=== PATIENT | female | born 1965 | race Caucasian/White ===

== ENCOUNTER 2022-04-28 20:14 | Emergency (ER) | payer OTHER, SELFPAY ==
[2022-04-28 20:15] VITALS: BP 136/94; PULSE 108; RESP 18; TEMP 36.8; O2SAT 98; BMI 30.5
--- NOTE | 2022-04-28 20:50 | CT_ITS ---
STUDY: CT ABDOMEN AND PELVIS WITHOUT CONTRAST REASON FOR EXAM: Female, 56 years old. Kidney Stone RADIATION DOSAGE (If Supplied By Facility): CTDIvol = ( 12.22 ) mGy, DLP = ( 638.18 ) mGycm TECHNIQUE: Transaxial images were obtained from the dome of the diaphragm to the symphysis pubis without oral contrast, and without intravenous contrast. Sagittal and coronal images were reconstructed. Individualized dose optimization techniques were used for this CT. COMPARISON: None. FINDINGS: The visualized lung bases are unremarkable. The visualized portions of the heart are within normal limits. Normal liver. Normal gallbladder and extrahepatic biliary system. Normal spleen. Normal pancreas. Normal bilateral adrenal glands. Normal right kidney. Normal left kidney. Normal visualized stomach. Normal small intestine. Normal colon. The appendix is visualized and appears normal. Normal abdominal aorta. Normal inferior vena cava. Normal retroperitoneum. Normal urinary bladder. Normal abdominal wall. Mild dextroscoliosis of the lumbar spine. CT/Abdomen/Pelvis without Cont IMPRESSION: Normal unenhanced CT of the abdomen and pelvis. Electronically Signed: Blaine Baker MD at 21:46 EST ,
--- NOTE | 2022-04-28 20:52 | EDS_ITS ---
HPI HPI - GI History of Present Illness Chief Complaint: Flank Pain Narrative Narrative: 56-year-old female who denies significant past medical history states she last had a kidney stone 15 years ago. On Thursday, 2 days ago, she had sudden onset of left flank pain more towards the front. It went from 10-0 very quickly. She thought maybe she had passed it. However, today she felt abdominal bloating, she felt feverish and sudden onset of pain again approximately 4 hours ago. No exacerbating or alleviating factors. On Thursday, she had noted hematuria which has resolved. She thinks she may have a kidney stone again. She relates history that she had diarrhea on Thursday, 2 days ago, but that has also resolved. She presents because of the pain in her left flank. [facility] Medical History (Updated 04/28/22 @ 22:38 by Kishan Singh MD) Depression Home Medications levofloxacin 750 mg tablet 750 mg PO DAILY #7 tabs 04/28/22 [Rx Last Taken Unknown] Allergy/AdvReac Type Severity Reaction Status Date / Time No Known Allergies Allergy Verified 04/28/22 21:10 Social History Smoking Status: Never smoker ROS ROS ED ROS Narrative Constitutional: No fever but felt feverish, no chills. HEENT: No sore throat. No neck pain. No loss of vision. No rhinorrhea. Cardiovascular: No chest pain. No palpitations. No pedal edema. Respiratory: No cough, no shortness of breath. Abdominal: No abdominal pain. No nausea. No vomiting. Diarrhea 2 days ago- resolved. Genitourinary: No dysuria. 2 days ago had hematuria. Left flank pain 2 days ago, resolved, then returned this evening 4 hours ago. Musculoskeletal: No myalgias. No arthralgias. Neurologic: No headaches. No dizziness. No lightheadedness. Skin: No rash. No change in color. Psychiatric: No depression. No anxiety. EXAM Physical Exam Narrative Exam Narrative: Afebrile. Vital signs noted. Nontoxic-appearing. HEENT: Normocephalic. Atraumatic. PERRL, EOMI. Neck soft and supple. No point tenderness or step off. Cardiovascular: Regular rate and rhythm with intermittent tachycardia. No murmurs, rubs, or gallops appreciated. Respiratory: No tachypnea. Lungs clear to auscultation bilaterally. Gastrointestinal: Abdomen soft, nontender, with normoactive bowel sounds. No rebound or guarding. No CVA tenderness to percussion, left Neurological: Awake. Alert. Nonfocal, nonlateralizing. Skin: No rash. Normal color. No pallor. Musculoskeletal: No pedal edema. Full range of motion extremities. Const Vital Signs: 04/28/22 20:15 Temperature 98.3 F Temperature Source Temporal Pulse Rate 108 H Respiratory Rate 18 Blood Pressure 136/94 H Blood Pressure Mean 108 Pulse Ox 98 Oxygen Delivery Method Room Air MDM MDM MDM Narrative Medical decision making narrative: Kidney stone work-up was pursued. She was administered 1 L of normal saline bolus intravenously. She was also administered ondansetron, Toradol, and morphine. She has had total hysterectomy so CT of the abdomen pelvis was obtained without contrast along with CBC and BMP. CBC shows slightly elevated white count of 11.8, hemoglobin normal at 12.7 with platelet count normal at 294. Electrolyte panel is grossly unremarkable except for glucose of 121 with a normal anion gap of 5, creatinine normal at 0.93. Urinalysis is positive for nitrites with 500 leukocyte esterase with microanalysis showing greater than 100 WBCs and greater than [address] of the abdomen pelvis shows no acute process, no ureterolithiasis or hydronephrosis. At this point in time, and we will treat her as a pyelonephritis. Urine culture was sent given her left flank pain and elevated white count. She was given her first dose of Levaquin and a prescription written for the next 7 days. I feel she be discharged safely home with follow- up. Return instructions to the emergency department were reviewed. Disposition is discharged home in stable condition. Lab Data Attestation: I reviewed the patient's lab results. Labs: Laboratory Results - last 24 hr 04/28/22 04/28/22 04/28/22 21:07 21:11 21:11 WBC 11.8 H RBC 4.19 L Hgb 12.7 Hct 38.4 MCV 91.6 MCH 30.3 MCHC 33.1 RDW Std Deviation 46.2 H RDW Coeff of Joaquin 13.5 Plt Count 294 MPV 9.5 Immature Gran % (Auto) 0.500 Neut % (Auto) 78.8 H Lymph % (Auto) 12.0 L Faulkner % (Auto) 8.1 Eos % (Auto) 0.3 Baso % (Auto) 0.3 Absolute Neuts (auto) 9.3 H Absolute Lymphs (auto) 1.41 Nucleated RBC % 0 Sodium 137 Potassium 3.6 Chloride 104 Carbon Dioxide 28.0 Anion Gap 5 BUN 9 Creatinine 0.93 Estim Creat Clear Calc 68.14 Est GFR (MDRD) Af Amer 80 Est GFR (MDRD) Non-Af 66 BUN/Creatinine Ratio 9.6 L Glucose 121 H Calcium 9.2 Urine Color Yellow Urine Clarity Cloudy Urine pH 6.0 Ur Specific [place] 1.020 Urine Protein 500 H Urine Glucose (UA) Normal Urine Ketones 5 H Urine Occult Blood 250 H Urine Nitrite Positive H Urine Bilirubin Negative Urine Urobilinogen Normal Ur Leukocyte Esterase 500 H Urine RBC > 100 SEEN Urine WBC >100 SEEN Ur Squamous Epith Cells 0-5 SEEN Urine Bacteria 1+ Urine Mucus 0 SEEN Radiography Diagnostic Testing: Clinical Impression(s) from Imaging Studies Abdomen/Pelvis CT 04/28/22 20:50 IMPRESSION: Normal unenhanced CT of the abdomen and pelvis. Electronically Signed: Blaine Baker MD at 21:46 EST , Discharge Plan Triage Chief Complaint: Flank Pain ED Provider: Kishan Singh Dx/Rx/DC Orders Clinical Impression: Pyelonephritis, Left flank pain Instructions: ED Pyelonephritis, Female (Adult) Prescriptions: New levofloxacin 750 mg tablet 750 mg PO DAILY Qty: 7 0RF Primary Care Provider: Care Physician,No Primary Referrals: Allyssa Trujillo MD [Med Staff - Active Staff] - 1 Week if not improving Nela Mendieta DO [Med Staff - Hand Ii Tube Bender] - 1 Week if not improving Care Physician,No Primary [Primary Care Provider] - Disposition Disposition: Home, Self Care
[2022-04-28] MEDS: Morphine 4 MG/ML Syringe IV (21:08)
[2022-04-28] MEDS: Ondansetron 4 MG/2 ML Vial IV (21:08)
[2022-04-28] MEDS: 0.9% Normal Saline 1,000 ML 999 ML IV (21:08)
[2022-04-28] MEDS: Ketorolac 30 MG/ML Syringe IV (21:08)
[2022-04-28 21:16] LABS: Mucous, Urine 0 SEEN /hpf (<or=2+)
[2022-04-28 21:17] LABS: Absolute Lymphocyte Count 1.41 X10^3/uL (0.83-4.51); Absolute Neutrophil Count 9.3 X10^3/uL (2.0-7.7); Basophil# 0.04 X10^3/uL; Basophil% 0.3 % (0-1); Eosinophil# 0.04 X10^3/uL; Eosinophils% 0.3 % (0-5); Hematocrit 38.4 % (37-47); Hemoglobin 12.7 g/dL (12.0-15.0); Lymphocyte # 1.41 X10^3/ul (0.83-4.51); Mean Corp Hgb Conc 33.1 g/dL (32-36); Mean Corpuscular Hgb 30.3 pg (27.0-32.0); Mean Corpuscular Volume 91.6 fL (81-99); Mean Platelet Vol. 9.5 fl (6.2-12.0); Monocyte# 0.95 X10^3/uL; Monocyte% 8.1 % (0-10); NRBC Flagged by Analyzer 0 % (0-5); Neutrophil # 9.26 X10^3/uL (2.7-7.7); Neutrophil % 78.8 % (47-70); Platelet Count 294 K/mm3 (150-450); RBC Distribution Width CV 13.5 % (11.6-14.6); RBC Distribution Width SD 46.2 fl (35.1-43.9); Red Blood Count 4.19 M/mm3 (4.2-5.4); White Blood Count 11.8 K/mm3 (4.4-11.0)
[2022-04-28 21:27] LABS: Color, Urine Yellow (Yellow); Glucose, Dipstick Normal (Normal); Ketone-Dipstick 5 mg/dl (Negative); Leukocyte Esterase-Dipstick 500 /ul (Negative); Nitrite-Dipstick Positive (Negative); Occult Blood-Urine 250 /ul (Negative); Protein-Dipstick 500 mg/dl (Negative); Urine Bilirubin Dipstick Negative (Negative); Urine Clarity Cloudy (Clear); Urine Urobilinogen Normal (Normal)
[2022-04-28 21:34] LABS: Anion Gap 5 (5-15); BUN 9 mg/dL (7-18); BUN/Creat Ratio 9.6 RATIO (10-20); Calcium,Total 9.2 mg/dL (8.5-10.1); Chloride 104 mmol/L (98-107); Creatinine, Serum 0.93 mg/dL (0.55-1.02); EST Glomerular Filtration Rate 66 mL/min (>60); Est Glom Filt Rate - Afr Amer 80 mL/min (>60); Estimated Creatinine Clearance 68.14 ml/min; Glucose 121 mg/dL (74-106); Potassium 3.6 mmol/L (3.5-5.1); Sodium Level 137 mmol/L (136-145)
[2022-04-28 21:47] LABS: White Blood Cells >100 SEEN /hpf (0-5)
[2022-04-28 21:49] LABS: Red Blood Cells-Urine > 100 SEEN /hpf (0-5)
[2022-04-28 21:50] LABS: Bacteria 1+ /hpf (None Seen); Squamous Epithelial Cells - UA 0-5 SEEN /hpf (5-10)
[2022-04-28] MEDS: levoFLOXacin 750 MG Tablet PO (22:55)
== END 2022-04-28 22:57 | disposition home or self-care (01) ==
PROVIDERS: Emergency Provider Emergency Medicine; Visit Provider Emergency Medicine
DX: N12 Tubulo-interstitial nephritis, not specified as acute or chronic (principal); R10.9 Unspecified abdominal pain
CPT/HCPCS: 74176; 80048; 81001; 85025; 87086; 87088; 87186; 96361; 96374; 96375; 99283; J7030; A4216; J2405

== ENCOUNTER 2023-10-23 07:31 | Outpatient (CLI) | payer OTHER, SELFPAY ==
--- NOTE | 2023-10-23 07:43 | BI_ITS ---
MAMMOGRAPHY - BILATERAL SCREENING REASON FOR EXAM: Female, 58 years old. Routine annual screening examination. PERTINENT HISTORY: Non-contributory. TECHNIQUE: Digital bilateral breast danette (3D mammographic acquisition) in the CC and MLO projections. 2-D mediolateral oblique (MLO) and craniocaudad (CC) views of both breasts were obtained. CAD: Full Field Digital Mammography with Computer Added Detection was performed. COMPARISON: Comparison is made with prior outside examination dated April 24, 2021 and March 12, 2020 FINDINGS: Breast Composition: The breasts are extremely dense, which lowers the sensitivity of mammography. There are no dominant masses or suspicious calcifications. No other significant abnormalities are identified. There has been no significant change since the prior study. BI/SCRN MAMM (CAD)W/DANETTE BILAT IMPRESSION: Stable bilateral screening mammogram. Yearly follow-up mammogram recommended. (A) ASSESSMENT CATEGORY: BIRADS Category 1: Negative. A letter regarding these results will be sent to the patient by the facility within 30 days. Approximately 10% of breast cancers are not detected by mammography. A normal mammogram should not delay biopsy of a clinically suspicious abnormality. [id number] Electronically Signed: Jatin Sandoval MD at 9:02 EDT ,
== END 2023-10-23 23:59 | disposition home or self-care (01) ==
LOC: OPBI 07:42
PROVIDERS: Visit Provider Emergency Medicine
DX: Z12.31 Encounter for screening mammogram for malignant neoplasm of breast (principal)
CPT/HCPCS: 77063; 77067

== ENCOUNTER 2023-12-01 08:17 | Day surgery (SDC) | payer OTHER, SELFPAY ==
[2023-12-01] VITALS (7 sets, daily range): BP systolic 98–134; BP diastolic 76–90; PULSE 62–70; RESP 16–18; TEMP 36.1–36.6; O2SAT 98–100; BMI 29.0
[2023-12-01] MEDS: Lactated Ringers 1,000 ML 15 ML IV (08:45)
--- NOTE | 2023-12-01 08:47 | PCM.PRE.AN2 ---
ASA Classification* ASA Classification ASA Classification: 2 Assessment & Plan Anesthesia* Anesthesia Assessment Anesthesia Assessment: Discussed sedation and/or anesthesia options, risks, benefits, and alternatives with patient/parents/legal guardian/POA. Questions invited. The patient/parents/legal guardian/POA seems to understand and agrees to proceed with anesthesia plan. Reviewed the physical assessment, medical history, allergy history and patient home medications list prior to surgery/procedure/anesthetic and documented any changes. Performed airway and anesthesia risk assessments. Anesthesia Type Anesthesia Type: MAC Anesthesia Focused Assessment* Temperature: 97.8 F Pulse Rate: 70 Blood Pressure: 134/90 Respiratory Rate: 18 Pulse Ox: 100 Airway Assessment Mouth opens: >3 cm Mallampati Score: II Focused Labs Anesthesia Preop lab: CBC WBC 11.8 K/mm3 (4.4-11.0) H 04/28/22 21:11 RBC 4.19 M/mm3 (4.2-5.4) L 04/28/22 21:11 Hgb 12.7 g/dL (12.0-15.0) 04/28/22 21:11 Hct 38.4 % (37-47) 04/28/22 21:11 Plt Count 294 K/mm3 (150-450) 04/28/22 21:11 CHEMISTRY Potassium 3.6 mmol/L (3.5-5.1) 04/28/22 21:11 Sodium 137 mmol/L (136-145) 04/28/22 21:11 BUN 9 mg/dL (7-18) 04/28/22 21:11 Creatinine 0.93 mg/dL (0.55-1.02) 04/28/22 21:11 Glucose 121 mg/dL (74-106) H 04/28/22 21:11 COAG Pre-Assessment Diagnosis/Proposed Procedure Planned Operative Procedure(s): COLONOSCOPY-OA Anesthesia History Anesthesia History - social secretary: Anesthesia History - social secretary Hx Hospitalization No 11/30/23 08:20 Any Problems With Anesthesia Yes: N&V 11/30/23 08:20 Cholinesterase deficiency No 11/30/23 08:20 You/Your Family Experience No 11/30/23 08:20 fever (hyperthermia) with Relationship Recent Exposure to Contagious No 12/01/23 08:37 Disease Does patient have nerve No 11/30/23 08:20 stimulator Patient instructed to have device shut off --Does patient have Pacemaker No 12/01/23 08:38 or ICD? When Was Last Pacemaker Check QUESTION #4 FULL TEXT: You/Your Family Experience fever (hyperthermia) with Anesthesia Last Oral Intake Last Oral intake: Last Oral Intake NPO since 06:00 12/01/23 08:38 Meds taken in AM with sips of water? Meds patient instructed to take am of surgery PONV PONV - social secretary: PONV - social secretary Female Yes 11/30/23 08:20 HX of Motion Sickness No 11/30/23 08:20 HX of N/V After Surgery No 11/30/23 08:20 Non-Smoker Yes 11/30/23 08:20 Duration of Surgery greater No 11/30/23 08:20 than 60 minutes Number of Risk Factors 2 11/30/23 08:20 PONV Score Moderate Risk 11/30/23 08:20 Height & Weight Height & Weight: Anesthesia: Height & Weight Height 5 ft 8 in 12/01/23 08:38 Weight: 86.636 kg 12/01/23 08:38 Body Mass Index (BMI) 29.0 12/01/23 08:38 Respiratory Assessment Respiratory Assessment - social secretary: Respiratory Tract Infection Hx - social secretary Hx Respiratory Tract Infection No 11/30/23 08:20 STOP Sleep Apnea STOP Sleep Apnea - social secretary: STOP Sleep Apnea - social secretary Hx Hypertension No 11/30/23 08:20 Hx Sleep Apnea No 11/30/23 08:20 CPAP BIPAP Do you snore loudly (louder Yes 11/30/23 08:20 than talking or can be heard Do you often feel tired/ No 11/30/23 08:20 fatigued/ sleepy during daytime? Has anyone observed you stop No 11/30/23 08:20 breathing during sleep? STOP Results Negative 11/30/23 08:20 QUESTION #5 FULL TEXT : Do you snore loudly (louder than talking or can be heard through closed doors)? 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 Specify any problems Hx of Preganancy in last 3 No 11/30/23 08:20 Months Nurse Filling Out Transfusion VCHRISTIN 11/30/23 08:20 & Questions: Date: 11/30/23 11/30/23 08:20 Time: 08:11/30/23 08:20 Patient unable to answer at this time (ie. confused, unrespo /Reproduction History /Reproductive History - social secretary: /Reproductive Hx- social secretary Hx Now Gestational Age (in weeks): EDC: Hx Hx Para Hx Section SAB Active Medications Active Medications: Current Medications Generic Name Dose Route Start Last Admin Trade Name Freq PRN Reason Stop Dose Admin Lactated Ringer's 1,000 mls @ 15 mls/hr 12/01/23 08:30 12/01/23 08:45 IV 15 mls/hr .Q48H LIZA Administration PFSH Medical History Wears contact lenses Anxiety Alcohol use Kidney stone Syncope Family hx of colon cancer Hx of colonic polyps Depression Home Medications ?Medication ?Instructions ?Recorded ?Last Taken ?Type escitalopram oxalate 10 mg tablet 10 mg PO DAILY 10/26/23 11/30/23 History (Lexapro) estradiol 1 mg tablet 1 mg PO DAILY 10/26/23 11/30/23 History hyoscyamine sulfate 0.125 mg 0.125 mg PO BID-QID PRN dyspepsia 10/26/23 Unknown History tablet (Levsin) Allergy/AdvReac Type Severity Reaction Status Date / Time morphine Allergy Nausea Verified 12/01/23 08:36 Family History Father Colon polyps Unknown Colon cancer, Onset Age: 45 Surgical History Hx of tubal ligation Hx of parathyroidectomy Hx of hysterectomy H/O total knee replacement Hx of colonoscopy Social History current occupational status: employed Smoking Status: Never smoker alcohol intake: current alcohol intake frequency: 0-2 drinks per day substance use type: does not use Review of Systems (Anesthesia) ROS Narrative System reviewed and no additional complaints, except as documented.
--- NOTE | 2023-12-01 11:10 | HP.PCM_ITS ---
HPI - General HPI Narrative ANDRES FENG, is a 58 F who presents for screening colonoscopy. She had her last colonoscopy 6 years ago and polyps were removed. She denies abdominal pain or blood in the stool. She has no first degree family history of colon cancer. PENDING SALE TO [facility] Medical History (Updated 12/01/23 @ 11:[address] Stone Pineda MD) Wears contact lenses Anxiety Alcohol use Kidney stone Syncope Family hx of colon cancer Hx of colonic polyps Depression Home Medications ?Medication ?Instructions ?Recorded ?Last Taken ?Type escitalopram oxalate 10 mg tablet 10 mg PO DAILY 10/26/23 11/30/23 History (Lexapro) estradiol 1 mg tablet 1 mg PO DAILY 10/26/23 11/30/23 History hyoscyamine sulfate 0.125 mg 0.125 mg PO BID-QID PRN dyspepsia 10/26/23 Unknown History tablet (Levsin) Allergy/AdvReac Type Severity Reaction Status Date / Time morphine Allergy Nausea Verified 12/01/23 08:36 Family History Father Colon polyps Unknown Colon cancer, Onset Age: 45 Surgical History Hx of tubal ligation Hx of parathyroidectomy Hx of hysterectomy H/O total knee replacement Hx of colonoscopy Social History current occupational status: employed Smoking Status: Never smoker alcohol intake: current alcohol intake frequency: 0-2 drinks per day substance use type: does not use Past Medical/Surgical History Planned Operation Planned Operative Procedure(s): COLONOSCOPY-OA Previous Hospitalizations/Surgeries HX Hospitalizations: No Any Problems With Anesthesia: Yes (N&V) You/Your Family Experience Fever (Hyperthermia) With Anes: No Cholinesterase deficiency: No Cardiovascular Hx Hypertension: No Respiratory Hx Sleep Apnea: No Hx Respiratory Tract Infection/Cold (presently): No Do You Snore Loudly (louder than talking or can be heard): Yes Do You Often Feel Tired/ Fatigued/ Sleepy Dring Daytime?: No Has Anyone Observed You Stop Breathing During Sleep?: No Result (for STOP score): Negative Smoking Status: Never smoker Neurological Does patient have nerve stimulator: No Miscellaneous Recent Exposure to Contagious Disease: No Allergies morphine Allergy (Verified 12/01/23 08:36) Nausea Discharge Is Pt Admitted From a Retirement, or a Snf: No After D/C, Where Do you Plan to Go: Return Home Vital Signs Vital Signs Vital Signs: 12/01/23 08:37 12/01/23 08:38 12/01/23 08:47 Temperature 97.8 F 97.8 F Temperature Source Temporal Pulse Rate 70 70 Respiratory Rate 18 18 Respiratory Pattern Normal Blood Pressure 134/90 H 134/90 H Blood Pressure Mean 104 Blood Pressure Source Monitor Blood Pressure Position Semi-Fowlers Blood Pressure Location Left Arm Pulse Ox 100 100 Oxygen Delivery Method Room Air Weight Weight: 191 lb Body Mass Index (BMI) 29.0 Physical Exam Const alert and oriented x3 HEENT normocephalic Eyes PERRL Resp normal respiratory effort and normal air movement Cardio regular rate and regular rhythm GI soft to palpation, non-tender and non-distended Extremity normal to inspection Assessment & Plan Assessment/Plan (1) Hx of colonic polyps: PLAN: I explained endoscopy in detail to the patient. I explained the risks including but not limited to stroke or heart attack with anesthesia, perforation of the GI tract, bleeding, infection. I explained that any of these could necessitate further emergency surgery. The patient understands and all questions were answered sufficiently. The patient wishes to proceed with procedure. Stone Pineda MD Pager: [facility] [address] [place] [address], [address] [place] [address] Office: Surgery Risks - Colonoscopy Risks Include but are not Limited To: Risks include but are not limited to: Bleeding, perforation requiring further surgery, inability to complete colonoscopy requiring barium enema.
--- NOTE | 2023-12-01 11:50 | PCM.POST.ANE ---
Anesthesia: Postop Eval I Current Vital Signs Temperature: 97.8 F Pulse Rate: 67 Blood Pressure: 107/76 Respiratory Rate: 18 Pulse Ox: 99 Oxygen Delivery Method: Room Air Assessment Airway patent: Yes Spontaneous unlabored respirations: Yes Mental status: Awake and Calm nausea: No Vomiting: No Anesthesia Complication: No Fluid Hydration Crystalloid volume administer (ml): 900 Total IV fluid infused: 900 Progress Note Anesthesia document: Postop Eval 1 completed: Yes
--- NOTE | 2023-12-01 12:01 | OP.CCLET_ITS ---
12/01/2023 Garfield Pinzon Md Re : Colonoscopy procedure for Ashanti Navas Dear Dr. Pinzon This procedure was performed on Friday, December 01, 2023. My impressions and recommendations are as follows: Impressions : - The entire examined colon is normal on direct and retroflexion views. - No specimens collected. Recommendations : - Discharge patient to home. - Resume previous diet. - Continue present medications. - Repeat colonoscopy in 10 years for screening purposes. My findings are described in the full procedure note, which is enclosed. If I can be of further assistance, please feel free to contact me at Doctor phone number(s): , Work: . Sincerely, Stone Pineda MD 12/01/2023 12:00:45 PM This report has been signed electronically.
--- NOTE | 2023-12-01 12:01 | OP.COLON_ITS ---
Patient Name: Ashanti Navas Procedure Date: 12/01/2023 11:10 AM Date of : 1965 Age: 58 Procedure: Colonoscopy Indications: High risk colon cancer surveillance: Personal history of colonic polyps Providers: Stone Pineda MD Referring MD: Garfield Pinzon Md Medicines: Propofol per Anesthesia Patient Profile: This is a 58 year old female. Refer to note in patient chart for documentation of history and physical. Last Colonoscopy: several years ago. Complications: No immediate complications. Procedure: Pre-Anesthesia Assessment: - Prior to the procedure, a History and Physical was performed, and patient medications and allergies were reviewed. The patient's tolerance of previous anesthesia was also reviewed. The risks and benefits of the procedure and the sedation options and risks were discussed with the patient. All questions were answered, and informed consent was obtained. Prior Anticoagulants: The patient has taken no anticoagulant or antiplatelet agents. After reviewing the risks and benefits, the patient was deemed in satisfactory condition to undergo the procedure. After I obtained informed consent, the scope was passed under direct vision. Throughout the procedure, the patient's blood pressure, pulse, and oxygen saturations were monitored continuously. The pediatric colonoscope was introduced through the anus and advanced to the cecum, identified by appendiceal orifice and ileocecal valve. The colonoscopy was performed without difficulty. The patient tolerated the procedure well. The quality of the bowel preparation was good. The ileocecal valve, appendiceal orifice, and rectum were photographed. Scope In: 11:34:57 AM Scope Withdrawal Time 0 hours 6 minutes 0 seconds Scope Out: 11:44:58 AM Total Procedure Duration Time 0 hours 10 minutes 1 second Findings: The entire examined colon appeared normal on direct and retroflexion views. Impression: - The entire examined colon is normal on direct and retroflexion views. - No specimens collected. Recommendation: - Discharge patient to home. - Resume previous diet. - Continue present medications. - Repeat colonoscopy in 10 years for screening purposes. Procedure Code(s): --- Professional --- 94136, Colonoscopy, flexible; diagnostic, including collection of specimen(s) by brushing or washing, when performed (separate procedure) Diagnosis Code(s): --- Professional --- Z86.010, Personal history of colonic polyps CPT copyright 2021 [employer]. All rights reserved. The codes documented in this report are preliminary and upon photograph retoucher review may be revised to meet current compliance requirements. Stone Pineda MD 12/01/2023 12:00:45 PM This report has been signed electronically. Number of Addenda: 0 Note Initiated On: 12/01/2023 11:10 AM
--- NOTE | 2023-12-01 12:30 | POSTOPAN2_ITS ---
Anesthesia Postop Eval I Sum Postop Eval Completion status Anesthesia document: Postop Eval 1 completed: Yes Anesthesia Postop Eval I Summary Anesthesia Postop Eval I Summary: Anesthesia Postop Eval I: Assessment Summary Airway patent Yes 12/01/23 11:51 [email or web address] Spontaneous unlabored Yes 12/01/23 11:51 [email or web address] respirations Mental status Awake,Calm 12/01/23 11:51 [email or web address] nausea No 12/01/23 11:51 [email or web address] Vomiting No 12/01/23 11:51 [email or web address] Anesthesia Postop Eval I: Fluid Summary Crystalloid volume administer 900 12/01/23 11:51 [email or web address] (ml) Colloids volume administered ( ml) Blood Product volume administered (ml) Total IV fluid infused 900 12/01/23 11:51 [email or web address] Anesthesia Postop Eval I: Summary Notes Anesthesia Complication No 12/01/23 11:51 [email or web address] Anesthesia Complication Comment: Post-operative progress note Anesthesia: Postop Eval II Evaluation Mental status: Awake and Calm Pain Level: 0 nausea: No Vomiting: No Complications Anesthesia Complication: No
--- NOTE | 2023-12-01 12:30 | PCM.POSTANE2 ---
Anesthesia Postop Eval I Sum Postop Eval Completion status Anesthesia document: Postop Eval 1 completed: Yes Anesthesia Postop Eval I Summary Anesthesia Postop Eval I Summary: Anesthesia Postop Eval I: Assessment Summary Airway patent Yes 12/01/23 11:51 [email or web address] Spontaneous unlabored Yes 12/01/23 11:51 [email or web address] respirations Mental status Awake,Calm 12/01/23 11:51 [email or web address] nausea No 12/01/23 11:51 [email or web address] Vomiting No 12/01/23 11:51 [email or web address] Anesthesia Postop Eval I: Fluid Summary Crystalloid volume administer 900 12/01/23 11:51 [email or web address] (ml) Colloids volume administered ( ml) Blood Product volume administered (ml) Total IV fluid infused 900 12/01/23 11:51 [email or web address] Anesthesia Postop Eval I: Summary Notes Anesthesia Complication No 12/01/23 11:51 [email or web address] Anesthesia Complication Comment: Post-operative progress note Anesthesia: Postop Eval II Evaluation Mental status: Awake and Calm Pain Level: 0 nausea: No Vomiting: No Complications Anesthesia Complication: No
== END 2023-12-01 12:20 | disposition home or self-care (01) ==
LOC: EN 08:19 → AC 08:20
PROVIDERS: PCP Emergency Medicine; Referring Provider Emergency Medicine; Visit Provider Surgery
PROC: 0DJD8ZZ Inspection of Lower Intestinal Tract, Via Natural or Artificial Opening Endoscopic (ICD-10-PCS; CPT 45378; principal; 2023-12-01 11:10)
DX: Z12.11 Encounter for screening for malignant neoplasm of colon (principal); Z80.0 Family history of malignant neoplasm of digestive organs; Z86.010 Personal history of colon polyps; F41.9 Anxiety disorder, unspecified; F32.A Depression, unspecified; Z79.899 Other long term (current) drug therapy
CPT/HCPCS: 45378; J7120; J2405

== ENCOUNTER → 2024-04-19 | Outpatient (CLI) | payer OTHER, SELFPAY ==
[2024-04-19 11:01] LABS: Anion Gap 6 (5-15); BUN 15 mg/dL (7-18); Calcium,Total 9.5 mg/dL (8.5-10.1); Chloride 106 mmol/L (98-107); Cholesterol 243 mg/dL (200); Creatinine, Serum 0.88 mg/dL (0.55-1.02); EST Glomerular Filtration Rate 70 mL/min (>60); Est Glom Filt Rate - Afr Amer 84 mL/min (>60); Glucose 92 mg/dL (74-106); High Density Lipoprotein 79 mg/dL; Potassium 3.9 mmol/L (3.5-5.1); Sodium Level 140 mmol/L (136-145); Triglycerides 139 mg/dL; Very Low Density Lipoprotein 28 mg/dL (5-40)
== END | disposition home or self-care (01) ==
PROVIDERS: PCP Emergency Medicine; Referring Provider Emergency Medicine; Visit Provider Emergency Medicine
DX: Z13.220 Encounter for screening for lipoid disorders (principal); F32.9 Major depressive disorder, single episode, unspecified
CPT/HCPCS: 36415; 80048; 80061

== ENCOUNTER 2024-12-01 11:31 | Emergency (ER) | payer OTHER, SELFPAY ==
[2024-12-01 11:32] VITALS: BP 134/79; PULSE 60; RESP 18; TEMP 36.2; O2SAT 100; BMI 28.2
[2024-12-01 12:13] VITALS: BP 126/77; PULSE 56; RESP 16; O2SAT 100
--- NOTE | 2024-12-01 12:25 | RAD_ITS ---
PROCEDURE: SHOULDER MIN 2 VIEWS 12/01/2024 REASON FOR EXAM: INJURY/PAIN TECHNIQUE: SHOULDER MIN 2 VIEWS COMPARISON: None FINDINGS: There is a comminuted fracture of the right humeral head and neck. There 0.3 cm cortical offset at the lateral margin. There is no dislocation. The AC joint is aligned. Mineralization is normal. There is no visible atherosclerosis. RAD/Shoulder min 2 Views IMPRESSION: There is a comminuted fracture of the right humeral head and neck. Critical results were discussed with Dr. Florez by Dr. Hammond at the time o f dictation. Reading Location: [facility]
--- NOTE | 2024-12-01 12:25 | RAD_ITS ---
PROCEDURE: CLAVICLE 12/01/2024 REASON FOR EXAM: INJURY/PAIN TECHNIQUE: CLAVICLE COMPARISON: None FINDINGS: The clavicle appears intact. The acromion appears intact. The AC joint is aligned. There is a comminuted fracture of the right humeral head and neck. There is no dislocation. Mineralization is normal. RAD/Clavicle IMPRESSION: There is a comminuted fracture of the right humeral head and neck. Critical results were discussed with Dr. Florez by Dr. Hammond at the time o f dictation. Reading Location: [facility]
--- NOTE | 2024-12-01 12:37 | EX.ED.GENINJ ---
HPI History of Present Illness Chief Complaint: Dislocation Informant: patient Narrative Narrative: Patient is a 59-year-old female [id number] presenting with acute right shoulder pain and injury. Patient was paddle boarding this morning and when she was trying to get back on the pontoon from the paddle board she slipped. Her was holding her arm while she fell. Both she and her heard/felt a popping sensation in her shoulder. She was concerned she dislocated and tried to do maneuvers to put it back in but continued to have pain so she came in for further evaluation. She is never dislocated her shoulder before. She denies any associate numbness or tingling. Denies any other injuries. Did take ibuprofen prior to coming in. No other complaints or concerns at this time [facility] Medical History Wears contact lenses Anxiety Alcohol use Kidney stone Syncope Family hx of colon cancer Hx of colonic polyps Depression Home Medications Medication Instructions Recorded Last Taken Type escitalopram oxalate 10 mg tablet 10 mg PO DAILY 10/26/23 11/30/23 History (Lexapro) estradiol 1 mg tablet 1 mg PO DAILY 10/26/23 11/30/23 History hyoscyamine sulfate 0.125 mg 0.125 mg PO BID-QID PRN dyspepsia 10/26/23 Unknown History tablet (Levsin) oxycodone 5 mg tablet 5 mg PO Q6H PRN pain 3 days #12 12/01/24 Unknown Rx tabs tizanidine 4 mg tablet 4 mg PO Q8H PRN muscle spasticity 12/01/24 Unknown Rx #20 tabs Allergy/AdvReac Type Severity Reaction Status Date / Time No Known Allergies Allergy Verified 12/01/24 11:34 Family History Father Colon polyps Unknown Colon cancer, Onset Age: 45 Surgical History Hx of tubal ligation Hx of parathyroidectomy Hx of hysterectomy H/O total knee replacement Hx of colonoscopy Social History current occupational status: employed Smoking Status: Never smoker alcohol intake: current alcohol intake frequency: 0-2 drinks per day substance use type: does not use ROS ROS ED Constitutional Constitutional ED: Denies chills or fever(s) Respiratory/Chest Respiratory/Chest: Denies dyspnea Gastrointestinal Gastrointestinal: Denies nausea or vomiting Musculoskeletal Musculoskeletal: Reports other Details: right shoulder pain Integumentary Denies Abrasions or rash Neurologic Neurologic: Denies headache(s), paresthesias or weakness Hematologic/Lymphatic Hematologic/Lymphatic: Denies easy bleeding or easy bruising EXAM Physical Exam Const Vital Signs: 12/01/24 11:32 12/01/24 12:13 12/01/24 13:16 Temperature 97.2 F L Temperature Source Temporal Pulse Rate 60 56 L 59 L Respiratory Rate 18 16 16 Blood Pressure 134/79 H 126/77 H 124/78 H Blood Pressure Mean 97 93 93 Pulse Ox 100 100 100 Oxygen Delivery Method Room Air Room Air 12/01/24 14:24 Temperature 98.2 F Temperature Source Pulse Rate 66 Respiratory Rate 14 Blood Pressure 118/70 Blood Pressure Mean 86 Pulse Ox 100 Oxygen Delivery Method Positive well nourished and well developed General Appearance ED: well developed HEENT atraumatic Chest Wall inspection of chest normal Resp normal respiratory effort and clear to auscultation bilaterally Cardio regular rhythm Extremity Extremity Narrative: Tenderness over the proximal aspect of the right humerus. Mild tenderness over the AC joint. No obvious deformity. There are some soft tissue swelling noted to the proximal humerus. Decreased range of motion secondary to pain. No obvious dislocation on physical exam. Normal range of motion of the elbow. Normal movement of the wrist. Normal movements of the hand. General Extremety ED: Yes edema and tenderness; Negative for deformity General Extremity: edema; Negative for deformity Neuro oriented x3 Arielle Coma Scale: document GCS findings Spontaneous Obeys Commands Oriented 15 Sensorium / Orientation: alert Psych mental status grossly normal Skin no rashes or lesions noted and no wounds MDM MDM MDM Narrative Medical decision making narrative: Patient evaluated for sudden onset of right shoulder pain and popping sensation. Has decreased range of motion. Differential includes AC joint separation, proximal humerus fracture and shoulder dislocation. Is given IV morphine for pain control. Does not have significant improvement with this and so complained of a spasm sensation in her shoulder. She is neuro vastly intact distally. X-ray of the clavicle and shoulder reviewed by myself as well as radiology. She has a comminuted proximal humerus fracture but no AC joint separation or clavicle fracture. Patient is placed in a sling. Is given Dilaudid for further pain control with better results. I will be discharged home with outpatient follow-up with orthopedics. I did speak with Ortho on-call, Dr. Blum who will follow up in the office and determine best treatment plan (conservative versus operative). Patient informed of this plan of care. Patient given prescription for tizanidine and oxycodone for pain control. Also discussed alternate ibuprofen and Tylenol for milder pain relief. Discussed the risk of opioid-induced constipation. Patient and verbalized agreement understands plan. Patient discharged home in stable and improved condition. Radiography Diagnostic Testing: Clinical Impression(s) from Imaging Studies Clavicle X-Ray 12/01/24 12:25 IMPRESSION: There is a comminuted fracture of the right humeral head and neck. Critical results were discussed with Dr. Florez by Dr. Hammond at the time of dictation. Reading Location: [facility] Shoulder X-Ray 12/01/24 12:25 IMPRESSION: There is a comminuted fracture of the right humeral head and neck. Critical results were discussed with Dr. Florez by Dr. Hammond at the time of dictation. Reading Location[facility] Management Discussion w/another healthcare provider: Game Designer (Dr. Blum-orthopedics) Discharge Plan Triage Chief Complaint: Dislocation ED Provider: Kaye Florez Dx/Rx/DC Orders Clinical Impression: Proximal humeral fracture, Acute pain of right shoulder Instructions: ED Fracture, Shoulder Prescriptions: New oxycodone 5 mg tablet 5 mg PO Q6H PRN (Reason: pain) 3 Days Qty: 12 0RF tizanidine 4 mg tablet 4 mg PO Q8H PRN (Reason: muscle spasticity) Qty: 20 0RF No Action escitalopram oxalate [Lexapro] 10 mg tablet 10 mg PO DAILY hyoscyamine sulfate [Levsin] 0.125 mg tablet 0.125 mg PO BID-QID PRN (Reason: dyspepsia) estradiol 1 mg tablet 1 mg PO DAILY Primary Care Provider: Garfield Pinzon Referrals: Garfield Pinzon MD [Primary Care Provider] - Warren Blum MD [Med Staff - Active Staff] - Activity Restrictions/Additional Instructions: Ice to your shoulder as tolerated. You may alternate ibuprofen and Tylenol in addition to the pain medications prescribed today. Follow-up with orthopedics within the next week. Call the office tomorrow or later today to schedule an appointment. Let them know you are seen in the ER and diagnosed with a proximal humerus fracture. Print Language: Guinean Disposition Disposition: Home, Self Care Discharge Date/Time: 12/01/24 14:30
[2024-12-01 13:16] VITALS: BP 124/78; PULSE 59; RESP 16; O2SAT 100
[2024-12-01 14:24] VITALS: BP 118/70; PULSE 66; RESP 14; TEMP 36.8; O2SAT 100
== END 2024-12-01 14:30 | disposition home or self-care (01) ==
PROVIDERS: Emergency Provider Emergency Medicine; PCP Emergency Medicine; Visit Provider Emergency Medicine
DX: S42.291A Other displaced fracture of upper end of right humerus, initial encounter for closed fracture (principal); W04.XXXA Fall while being carried or supported by other persons, initial encounter; Y93.19 Activity, other involving water and watercraft; F32.A Depression, unspecified; Z79.899 Other long term (current) drug therapy
CPT/HCPCS: 73000; 73030; 96374; 96375; 99284; A4216; J2405